=== PATIENT | female | born 1945 | race Caucasian/White ===

== ENCOUNTER 2017-11-01 08:16 | Outpatient (CLI) | payer OTHER | END 2017-11-01 08:22 | disposition home or self-care (01) | LOC: SONOGRAMA 08:16 | DX: M25.511 Pain in right shoulder (principal) ==

== ENCOUNTER 2018-08-02 10:19 | Outpatient (CLI) | payer OTHER | END 2018-08-02 10:27 | disposition home or self-care (01) | LOC: MAMO-SONO 10:19 | DX: Z12.31 Encounter for screening mammogram for malignant neoplasm of breast (principal); Z87.898 Personal history of other specified conditions; N60.11 Diffuse cystic mastopathy of right breast; N60.12 Diffuse cystic mastopathy of left breast ==

== ENCOUNTER → 2020-11-25 | Outpatient (CLI) | payer OTHER | END | disposition home or self-care (01) | LOC: MAMO-SONO 08:36 | PROVIDERS: ATTEND Family Medicine | DX: Z12.31 Encounter for screening mammogram for malignant neoplasm of breast (principal); N64.59 Other signs and symptoms in breast; N60.11 Diffuse cystic mastopathy of right breast; N60.12 Diffuse cystic mastopathy of left breast ==

== ENCOUNTER 2022-02-05 10:38 | Outpatient (CLI) | payer OTHER | END 2022-02-05 10:39 | disposition home or self-care (01) | LOC: NUCLEAR 10:38 | PROVIDERS: ATTEND Family Medicine | DX: M85.80 Other specified disorders of bone density and structure, unspecified site (principal) ==

== ENCOUNTER 2022-02-05 11:41 | Outpatient (CLI) | payer OTHER | END 2022-02-05 11:43 | disposition home or self-care (01) | LOC: MAMO-SONO 11:41 | PROVIDERS: ATTEND Family Medicine | DX: N60.11 Diffuse cystic mastopathy of right breast (principal); N60.12 Diffuse cystic mastopathy of left breast ==

== ENCOUNTER 2024-11-13 10:46 | Outpatient (CLI) | payer OTHER | END 2024-11-13 10:56 | disposition home or self-care (01) | LOC: RAD 10:46 | PROVIDERS: ATTEND Ophthalmology | DX: Z01.818 Encounter for other preprocedural examination (principal) ==